=== PATIENT | male | born 1955 | race Caucasian/White ===

== ENCOUNTER 2023-04-08 23:26 | Emergency (ER) | payer MEDICAID, MEDICARE ==
[2023-04-08] MEDS ORDERED: Tenecteplase 50 MG Kit ONE (23:37)
[2023-04-08] MEDS ORDERED: Tenecteplase 50 MG Kit IV STA (23:42)
[2023-04-08 23:44] LABS: BASOPHILS ABSOLUTE AUTO 0.04 K/mm3 (0.01-0.08); BASOPHILS PERCENT AUTO 0.6 % (0.1-1.2); EOSINOPHILS ABSOLUTE AUTO 0.24 K/mm3 (0.04-0.54); EOSINOPHILS PERCENT AUTO 3.4 (0.8-7.0); HEMATOCRIT 44.1 % (40.1-51.0); HEMOGLOBIN 15.2 gm/dl (13.7-17.5); IMMATURE GRAN ABSOLUTE AUTO 0.01 K/mm3 (0.00-0.10); IMMATURE GRAN PERCENT AUTO 0.1 % (<=1.0); LYMPHOCYTES ABSOLUTE AUTO 1.97 K/mm3 (1.32-3.57); LYMPHOCYTES PERCENT AUTO 27.6 % (21.8-53.1); MEAN CORPUSCULAR HEMOGLOBIN 30.3 pg (25.7-32.2); MEAN CORPUSCULAR HGB CONC 34.5 g/dl (32.2-35.5); MEAN PLATELET VOLUME 9.2 fl (9.4-12.3); MONOCYTES ABSOLUTE AUTO 0.71 K/mm3 (0.30-0.82); MONOCYTES PERCENT AUTO 9.9 % (5.3-12.2); NEUTROPHILS ABSOLUTE AUTO 4.17 K/mm3 (1.78-5.38); NEUTROPHILS PERCENT AUTO 58.4 % (34.0-67.9); PLATELET COUNT,PLT 192 K/mm3 (163-337); RED BLOOD CELL COUNT 5.01 M/mm3 (4.63-6.08); WHITE BLOOD CELL COUNT,WBC 7.14 K/mm3 (4.23-9.07)
[2023-04-08] MEDS ORDERED: Nitroglycerin 0.4 MG Tab.SL ONE (23:44)
[2023-04-08] MEDS ORDERED: Nitroglycerin 0.4 MG Tab.SL SL PRN (23:44)
[2023-04-08] MEDS ORDERED: Heparin Sodium/D5W 25,000 UNITS/500 ML BAG IV SCH (23:45)
[2023-04-08] MEDS ORDERED: Sodium Chloride 0.9% 1,000 ML IV ONE (23:52)
[2023-04-08] MEDS ORDERED: Ticagrelor 90 MG Tab PO ONE (23:54)
[2023-04-08] MEDS ORDERED: Heparin Sodium 5,000 Units/ML Vial IVPUSH ONE ×2 (23:54)
[2023-04-09 00:19] LABS: A/G RATIO 0.9 (1-2); ALBUMIN 3.8 g/dl (3.4-5.0); ANION GAP 10.9 (5-15); BILIRUBIN TOTAL 0.6 mg/dL (0.2-1.0); BUN/CREATININE RATIO 12.5 (14-18); CALCIUM 8.4 mg/dL (8.5-10.1); CREATININE 1.2 mg/dL (0.7-1.3); EST CRCL DRUG DOSING (CG) 51.96 mL/min; POTASSIUM,K 3.9 mEq/L (3.5-5.1)
[2023-04-09 00:22] LABS: INR 1.1; PROTHROMBIN TIME 11.7 SECONDS (9.7-12.0)
[2023-04-09 00:23] LABS: PTT,PARTIAL THROMBOPLSTIN TIME 25.4 SECONDS (21.7-31.4)
[2023-04-09] MEDS ORDERED: Morphine 2 MG/ML SYRINGE IVPUSH ONE (00:35)
[2023-04-09 01:24] VITALS: BP 109/74; PULSE 60
== END 2023-04-09 01:08 | disposition other institution (70) ==
LOC: JD.ED 23:26
DX: I21.9 Acute myocardial infarction, unspecified (principal); Z79.82 Long term (current) use of aspirin
CPT/HCPCS: 36415; 71045; 80053; 84484; 85025; 85610; 85730; 92977; 93005; 96365; 96375; 99285; A9270; J1644; J2270; J3101; J7030; 93010; 99284